=== PATIENT | female | born 1975 ===

== ENCOUNTER → 2023-04-03 08:45 | Outpatient (BNVA) | payer OTHER, SELFPAY | PROVIDERS: Visit Provider Obstetrics & Gynecology | DX: Z01.419 Encounter for gynecological examination (general) (routine) without abnormal findings (principal); Z00.00 Encounter for general adult medical examination without abnormal findings | CPT/HCPCS: 80053; 84443; 85025; 87624 ==

== ENCOUNTER → 2023-04-23 07:44 | Outpatient (BNVA) | payer OTHER, SELFPAY | PROVIDERS: PCP Family Medicine; Visit Provider Obstetrics & Gynecology | DX: D25.9 Leiomyoma of uterus, unspecified (principal); N93.9 Abnormal uterine and vaginal bleeding, unspecified | CPT/HCPCS: 76830 ==

== ENCOUNTER 2023-05-12 09:35 | Outpatient (CLI) | payer OTHER, SELFPAY ==
--- NOTE | 2023-05-12 10:05 | MM_ITS ---
WS: [id number] BILATERAL 3D TOMOSYNTHESIS DIGITAL SCREENING MAMMOGRAPHY WITH CAD CLINICAL INFORMATION: Z12.39 - Encounter for other screening for malignant neop... HISTORY: Screening mammogram. No current complaints. COMPARISON: Baseline TECHNIQUE: Bilateral CC and MLO views. FINDINGS: Scattered fibroglandular densities bilaterally. No suspicious focal mass, asymmetry, calcifications, or architectural distortion. No evidence of malignancy. MM/[place] [id number] IMPRESSION: BI-RADS: 1-Negative FOLLOW UP: 1 Year Follow-up Recommend return to annual screening mammography.
== END 2023-05-12 09:36 | disposition home or self-care (01) ==
LOC: MOBLMAM 09:39
PROVIDERS: PCP Family Medicine; Visit Provider Obstetrics & Gynecology
DX: Z12.31 Encounter for screening mammogram for malignant neoplasm of breast (principal)
CPT/HCPCS: 77063; 77067

== ENCOUNTER 2024-11-08 15:31 | Outpatient (CLI) | payer OTHER, SELFPAY ==
--- NOTE | 2024-11-08 16:00 | USCV_ITS ---
Teagan Ross Age: 49 Gender: F : 1975 Exam Date: 11/08/2024 15:41 Ordering Phys: Ester Pereira NP Technologist: [id number] Exam Location: [facility] [place] Indication: hx of dvt. rt calf pain HISTORY: History of deep venous thrombosis. PROCEDURES: Venous duplex imaging was performed in only the right lower extremity. The following venous structures were evaluated: common femoral vein, profunda vein, proximal portion of the greater saphenous vein, superficial femoral vein, and the popliteal vein. In addition, the posterior tibial and peroneal trunk were evaluated. Serial compression, augmentation maneuvers, and spectral Doppler flow evaluation were performed. Grayscale and doppler images were obtained. FINDINGS: Enlarged lymph nodes seen in the right groin by GSV CFV. Thrombus in GSV from above knee to ankle CONCLUSIONS Extensive Thrombus in GSV from above knee to ankle. Remainder RLE vessels patent Prominent lymph nodes in the right groin non-specific but may be reactive Message left for provider by clinical allergist at time of examination. Patient is currently on blood thinners. Jim Goldstein MD (Electronically Signed) Final Date: 08 November 2024 16:33 S
== END 2024-11-08 15:32 | disposition home or self-care (01) ==
LOC: RAD 15:33
PROVIDERS: PCP Family Medicine; Visit Provider Nurse Practitioner Family
DX: I82.811 Embolism and thrombosis of superficial veins of right lower extremity (principal); Z86.718 Personal history of other venous thrombosis and embolism; R59.0 Localized enlarged lymph nodes
CPT/HCPCS: 93971

== ENCOUNTER 2025-02-23 08:34 | Outpatient (CLI) | payer OTHER, SELFPAY ==
--- NOTE | 2025-02-23 09:00 | MM_ITS ---
WS: [id number] Bilateral screening 3D tomosynthesis digital mammogram, 02/23/2025 8:40 AM Clinical Data: SCREENING Comparison: 05/12/2023 Findings: No spiculated masses or clustered calcifications are seen. There are no secondary signs of carcinoma. MM/MM scr BI tomosynthesis [id number] Impression: Negative bilateral mammogram unchanged. Recommend annual screening mammograms. BIRADS: 1 - Negative. FOLLOW UP: 1 Year Follow-up DENSITY: There are scattered areas of fibroglandular density. The CAD baggage security checker was used
== END 2025-02-23 08:35 | disposition home or self-care (01) ==
LOC: MOBLMAM 08:37
PROVIDERS: PCP Family Medicine; Visit Provider Family Medicine
DX: Z12.31 Encounter for screening mammogram for malignant neoplasm of breast (principal); R92.323 Mammographic fibroglandular density, bilateral breasts
CPT/HCPCS: 77063; 77067